=== PATIENT | male | born 1995 | race Asian ===

== ENCOUNTER 2017-11-30 17:19 | Emergency (ER) | payer MEDICARE, MEDICAID ==
[~2017-11-30] VITALS: Ht 165.1 cm; Wt 63.6 kg
[2017-11-30] MEDS ORDERED: VALP250 PO (17:34)
[2017-11-30] MEDS ORDERED: FOLI1 PO (17:34)
[2017-11-30] MEDS ORDERED: LISI-661 PO (17:34)
[2017-11-30] MEDS ORDERED: SEVE800PW PO (17:34)
[2017-11-30] MEDS ORDERED: AMLO-511 PO (17:34)
[2017-11-30] MEDS ORDERED: LEVE250T55 PO (17:34)
[2017-11-30] MEDS ORDERED: HYDR10TA31 PO (17:34)
[2017-11-30] MEDS ORDERED: SODIUM CHLORIDE 0.9% 1,000 ML IV ONE (18:00)
[2017-11-30 18:34] LABS: BASOPHILS % (AUTO) 0.6 % (0.0-2.0); EOSINOPHILS % (AUTO) 1.5 % (1.0-6.0); HEMATOCRIT 28.5 % (41-53); HEMOGLOBIN 9.5 g/dL (13.5-17.5); LYMPHOCYTES # (AUTO) 1.1 K/uL (1.0-4.8); LYMPHOCYTES % (AUTO) 18.2 % (22.0-44.0); MEAN CORPUSCULAR HEMOGLOBIN 29.1 pg (26.0-34.0); MEAN CORPUSCULAR HGB CONC 33.4 G/dL (31.0-37.0); MEAN CORPUSCULAR VOLUME 87 fL (80-100); MONOCYTES # (AUTO) 0.7 K/uL (0.1-1.0); MONOCYTES % (AUTO) 11.3 % (2.0-9.0); NEUTROPHILS # (AUTO) 4.1 K/uL (1.8-7.7); NEUTROPHILS % (AUTO) 68.4 % (40.0-70.0); PLATELET COUNT (AUTO) 231 K/uL (150-450); RED BLOOD CELL COUNT(AUTO) 3.26 MIL/uL (4.50-5.90); RED CELL DISTRIBUTION WIDTH 17.5 % (11.5-14.5)
[2017-11-30 18:46] LABS: CALCIUM, TOTAL 8.8 mg/dL (8.8-10.5); CREATININE 11.46 mg/dL (0.60-1.30); POTASSIUM 4.2 mmol/L (3.5-5.1)
[2017-11-30 18:53] LABS: ALBUMIN 3.3 g/dL (3.4-5.0); BILIRUBIN,TOTAL 0.4 mg/dL (0.1-1.0); TOTAL PROTEIN, SERUM 7.5 g/dL (6.4-8.2)
[2017-11-30 21:09] VITALS: BP 100/60
== END 2017-11-30 21:11 | disposition home or self-care (01) ==
LOC: EMS 17:19
DX: R53.1 Weakness (principal); R19.7 Diarrhea, unspecified; I12.0 Hypertensive chronic kidney disease with stage 5 chronic kidney disease or end stage renal disease; N18.6 End stage renal disease; F12.10 Cannabis abuse, uncomplicated; Z99.2 Dependence on renal dialysis; Z79.899 Other long term (current) drug therapy
CPT/HCPCS: 80053; 85025; 85610; 85730; 86850; 86900; 86901; 93005; 96360; 99285; J7030